=== PATIENT | female | born 1980 | race Caucasian/White ===

== ENCOUNTER → 2017-09-03 17:59 | Outpatient (CLI) | payer BC, SELFPAY ==
[2017-09-03 20:07] LABS: Chlamydia Trachomatis by PCR Negative (Negative); Neisserai gonorrhoeae by PCR Negative (Negative); Probe Check PASS; Sample Adequacy Control PASS; Specimen Processing Control PASS
== END ==
PROVIDERS: Visit Provider Obstetrics & Gynecology
DX: Z11.3 Encounter for screening for infections with a predominantly sexual mode of transmission (principal)
CPT/HCPCS: 87491; 87591

== ENCOUNTER → 2021-09-20 | Outpatient (CLI) | payer BC, SELFPAY ==
[2021-09-26 18:09] LABS: HPV APTIMA, High Risk Negative (Negative)
== END | disposition home or self-care (01) ==
LOC: LABSPEC 16:09
PROVIDERS: Visit Provider Student in an Organized Health Care Education/Training Program
DX: Z12.4 Encounter for screening for malignant neoplasm of cervix (principal)
CPT/HCPCS: 87624; 88175; G0145

== ENCOUNTER → 2022-08-17 | Outpatient (CLI) | payer BC, SELFPAY | END | disposition home or self-care (01) | LOC: LABSPEC 15:32 | PROVIDERS: Visit Provider Physician Assistant | DX: J02.9 Acute pharyngitis, unspecified (principal) | CPT/HCPCS: 87070 ==

== ENCOUNTER 2024-02-29 08:01 | Day surgery (SDC) | payer BC, SELFPAY ==
[2024-02-29] VITALS (8 sets, daily range): BP systolic 147–179; BP diastolic 75–86; PULSE 94–127; RESP 14–20; TEMP 36.4–37.2; O2SAT 94–99; BMI 43.4
--- NOTE | 2024-02-29 08:34 | PCM.PRE.AN2 ---
ASA Classification* ASA Classification ASA Classification: 2 Assessment & Plan Anesthesia* Anesthesia Assessment Anesthesia Assessment: Discussed sedation and/or anesthesia options, risks, benefits, and alternatives with patient/parents/legal guardian/POA. Questions invited. The patient/parents/legal guardian/POA seems to understand and agrees to proceed with anesthesia plan. Reviewed the physical assessment, medical history, allergy history and patient home medications list prior to surgery/procedure/anesthetic and documented any changes. Performed airway and anesthesia risk assessments. Anesthesia Type Anesthesia Type: General Anesthesia Focused Assessment* Airway Assessment Mouth opens: >3 cm Mallampati Score: II Focused Labs Anesthesia Preop lab: CBC WBC 9.1 K/mm3 (4.4-11.0) 07/28/14 05:35 RBC 3.33 M/mm3 (4.2-5.4) L 07/28/14 05:35 Hgb 10.1 g/dl (12.0-15.0) L 07/28/14 05:35 Hct 30.6 % (37-47) L 07/28/14 05:35 Plt Count 233 K/mm3 (150-450) 07/28/14 05:35 CHEMISTRY TSH 0.25 uIU/mL (0.358-3.74) L 12/29/13 10:41 COAG PT 13.6 SECONDS (11.7-14.9) 07/27/14 05:50 Urine Test Pending 02/29/24 08:10 Pre-Assessment Diagnosis/Proposed Procedure Planned Operative Procedure(s): LAP LEFT OVARIAN CYSTECTOMY POSS RIGHT OVARIAN CYSTECTOMY POSS OOPHERECTOMY POSS BILAT SALPINGECTOMY Anesthesia History 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 When Was Last Pacemaker Check QUESTION #4 FULL TEXT: You/Your Family Experience fever (hyperthermia) with Anesthesia Last Oral Intake Last Oral intake: Last Oral Intake NPO since Meds taken in AM with sips of water? Meds patient instructed to take am of surgery PONV PONV - sugarcane research technician: PONV - sugarcane research technician Female Yes 02/27/24 08:32 HX of Motion Sickness Yes 02/27/24 08:32 HX of N/V After Surgery Yes 02/27/24 08:32 Non-Smoker Yes 02/27/24 08:32 Duration of Surgery greater Yes 02/27/24 08:32 than 60 minutes Number of Risk Factors 5 02/27/24 08:32 PONV Score Severe Risk 02/27/24 08:32 Height & Weight Height & Weight: Anesthesia: Height & Weight Height 5 ft 7 in 07/29/21 08:23 Respiratory Assessment Respiratory Assessment - sugarcane research technician: Respiratory Tract Infection Hx - sugarcane research technician Hx Respiratory Tract Infection No 02/27/24 08:32 STOP Sleep Apnea STOP Sleep Apnea - sugarcane research technician: STOP Sleep Apnea - sugarcane research technician Hx Hypertension No 02/27/24 08:32 Hx Sleep Apnea No 02/27/24 08:32 CPAP BIPAP Do you snore loudly (louder Yes 02/27/24 08:32 than talking or can be heard Do you often feel tired/ No 02/27/24 08:32 fatigued/ sleepy during daytime? Has anyone observed you stop No 02/27/24 08:32 breathing during sleep? STOP Results Negative 02/27/24 08:32 QUESTION #5 FULL TEXT : Do you snore loudly (louder than talking or can be heard through closed doors)? Tobacco Use History Tobacco Use History - sugarcane research technician: Tobacco Use History - sugarcane research technician Tobacco Use Smoking Status Never smoker 02/27/24 08:32 Hx Tobacco Use No 02/27/24 08:32 Years Smoking Packs Smoked per Day Smoking Cessation Date was within the last 15 years Hx Smoking Cessation Date Hx Smoking Cessation Counseling Hematologic Medial History Hematologic Hx - sugarcane research technician: Hematologic Medical Hx - rn digestive Hx of Blood Transfusion No 02/27/24 08:32 Hx of Transfusion in last 3 No 02/27/24 08:32 Months Date of Last Transfusion (if within last 3 months) Ever experience any problems No 02/27/24 08:32 with transfusion(s)? Specify any problems Hx of Preganancy in last 3 No 02/27/24 08:32 Months Nurse Filling Out Transfusion DSCHRIBER 02/27/24 08:32 & Questions: Date: 02/27/24 02/27/24 08:32 Time: 08:34 02/27/24 08:32 Patient unable to answer at this time (ie. confused, unrespo /Reproduction History /Reproductive History - sugarcane research technician: /Reproductive Hx- sugarcane research technician Hx Now No 02/27/24 08:32 Gestational Age (in weeks): EDC: Hx Hx Para Hx Section SAB No 02/27/24 08:32 [facility] Medical History Wears glasses History of steroid therapy Migraine headache Back pain Vertigo Gastric reflux Non-smoker History of pain when walking Acute pharyngitis, unspecified Home Medications ?Medication ?Instructions ?Recorded ?Last Taken ?Type cetirizine 10 mg capsule (Zyrtec) 10 mg PO DAILY 07/29/21 Unknown History esomeprazole magnesium 20 mg 20 mg PO DAILY 07/29/21 02/29/24 History capsule,delayed release (Nexium) Allergy/AdvReac Type Severity Reaction Status Date / Time No Known Allergies Allergy Verified 02/27/24 08:31 Family History Father Hypertension Surgical History Hx of microdiscectomy Hx laparoscopic cholecystectomy H/O tubal ligation History of delivery Hx of tonsillectomy Social History Smoking Status: Never smoker Review of Systems (Anesthesia) ROS Narrative System reviewed and no additional complaints, except as documented.
[2024-02-29 08:35] LABS: Internal QC Validated? YES +Cl - CLEAR BKGD; Pregnancy, Urine Negative Negative
[2024-02-29] MEDS: Lactated Ringers 1,000 ML 15 ML IV (09:06)
[2024-02-29 09:13] LABS: Hematocrit 38.2 % (37-47); Hemoglobin 12.9 g/dL (12.0-15.0); Mean Corp Hgb Conc 33.8 g/dL (32-36); Mean Corpuscular Hgb 29.3 pg (27.0-32.0); Mean Corpuscular Volume 86.6 fL (81-99); Mean Platelet Vol. 9.3 fl (6.2-12.0); Platelet Count 385 K/mm3 (150-450); RBC Distribution Width CV 12.9 % (11.6-14.6); RBC Distribution Width SD 40.9 fl (35.1-43.9); Red Blood Count 4.41 M/mm3 (4.2-5.4); White Blood Count 7.8 K/mm3 (4.4-11.0)
--- NOTE | 2024-02-29 09:30 | OV_PTH ---
PATIENT: STACY SILVA LOC: [facility] [place][id number] AGE/SX: 43/F ROOM: RE02/29/[address]: Dr. Eduarda Parra DO : 1980 BED: DIS: 02/29/2024 SPEC #: [id number] RECD: 02/29/24 12:14 STATUS: RAMIRO REAvis #: [id number] SLOANE: 02/29/24 09:[address]: Eduarda Parra DEPT: SURGICAL PATHOLOGY RECD BY: Fatoumata Haddad ENTERED: 02/29/24 13:27 SP TYPE: OVARY OTHR DR: Quynh Cooley, SUPERVISOR HARDBOARD-C Tissues: OVARIAN CYST Procedures: Special Stain Group I Mucicarmine Stain (control) Surgery Specimen Level IV HEADER OPERATION: Laparoscopic left ovarian cystectomy, left oophorectomy PRE-OP DIAGNOSIS: Left ovarian cyst TISSUE SUBMITTED: Right tube, left tube cyst and ovary MICROSCOPIC DIAGNOSIS Right fallopian tube, left fallopian tube, cyst and left ovary, bilateral salpingectomy and left oophorectomy: Right fallopian tube- no pathologic diagnosis. Left fallopian tube- Endometriosis involving serosal surface. Left paratubal cyst. 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 See comment. 03/03/2024 COMMENT Mucin stain with matched control is used in the evaluation of this case. MICROSCOPIC DESCRIPTION Slides are reviewed. GROSS DESCRIPTION Received in fixative is one container labeled with the patient's name and designated Right tube, left tube cyst and ovary. The specimen consists of one fallopian tube identified as right fallopian tube and second fallopian tube and adjacent ovary identified as left tube, cyst and ovary. The right fallopian tube measures 6.0cm in length and 0.5cm in diameter. Fimbrial end is identified. Sections reveal unremarkable cut surfaces. The left fallopian tube measures 4.0cm in length and 0.5cm in diameter. It is similar appearance to right. No tuboovarian adhesions are noted. A paratubal cyst is noted measuring 0.7cm in greatest dimension. Cystic ovary weighs 56.5gm and measures 7.0 x 5.5 x 4.0cm. Outer surface is smooth without any papillation and is inked black. The ovary is replaced by a unilocular cyst occupying the entire ovary. Cyst wall is thin and smooth without any papillations and measures up to 0.1cm in thickness. Gandy Dancer sections are submitted in four cassettes as follows: 1- right fallopian tube, 2- left fallopian tube, 3&4- left ovary. SJBennymr 02/29/2024 TC:1 CPT:21123, [id number]
[2024-02-29] MEDS: Bupivacaine Mpf 0.5% 30 ML VIAL (10:59)
--- NOTE | 2024-02-29 11:14 | PCM.DC ---
Discharge Instructions Diet Discharge Diet: No restrictions Activity Discharge Activity: May Drive (once you are more than 24 hours out from surgery and you feel you can slam on a brake or turn a steering wheel sharply, and once you are not taking pain medication) and May Shower (once you are more than 24 hours out from surgery) May resume sexual activity in: 2 weeks Ice area for (Minutes): 15 Weight Bearing Status: Weight bearing as tolerated Lifting Restrictions: nothing heavier than 10-15 pounds for 2 weeks Dressing / Incision Call your doctor if your incision/area has: Continuous Slow Oozing, Sudden Increased Bleeding, Increased Pain/ Swelling, Increased Redness, Foul Smelling Discharge and Swelling at the incision site Call your doctor if you observe: Fever of 101 or Higher, Inability to urinate, Inability to have a bowel movement, Using more than 1 pad per hour, Shortness of breath, Dizziness, Swelling in the ankles, Chest pain, Increased palpitations (irregular heartbeat), Calf discomfort and Uncontrolled pain Suture Line Care: Avoid Pulling/Pushing and Avoid Pinching/Bending Remove Dressing in: leave until fall off Cleanse incision/area with: Soap & Water Follow Up Care Please Follow Up With: Eduarda Parra DO When: 1-2 weeks post op Test Results: Test results from this visit will be discussed in further detail at your follow-up appointment, if applicable. Discharge Plan Admission Primary Reason for Your Visit: surgery Attending Provider: Eduarda Parra Primary Care Provider: Quynh Cooley NP Instructions Patient Instructions: Lap Fallopian Tube Ligation Dc Print Language: Armenian Discharge Orders/Prescriptions Prescriptions: New oxycodone 5 mg tablet 5 mg PO Q6H PRN (Reason: pain) 7 Days Qty: 10 0RF Continued Zyrtec 10 mg capsule 10 mg PO DAILY esomeprazole magnesium [Nexium] 20 mg capsule,delayed release(DR/EC) 20 mg PO DAILY Disposition Disposition (needs filled in before D/C Order can be placed): Home, Self Care
--- NOTE | 2024-02-29 11:16 | OP.PCM_ITS ---
Problems Associated Problem List Diagnoses (1) Ovarian cyst: (2) Pelvic pain: Operative Report (Standard) Operative Information Surgery/Procedure Performed: Laparoscopic left oophorectomy, bilateral salpingectomy, removal of ovarian cyst Surgeon: Eduarda Parra Date of Procedure: 02/29/24 Procedure Start Time: 09:59 Procedure Stop Time: 11:16 Pre-Operative Diagnosis: Ovarian cyst, pelvic pain Post-Operative Diagnosis: As above, endometriosis Select all DRAINS/GRAFTS/IMPLANTS that apply: None Type of Anesthesia: General Special Medications: None Estimated Blood Loss: < 20 mL Fluids Replaced: 1000 mL Specimen collected: Yes Description of specimen(s) removed: Left ovary with cyst, bilateral fallopian tubes Description of surgery: The patient was taken to the OR where general anesthesia was induced and found to be adequate. She was then prepped and draped in the dorsal lithotomy position using yellowfin stirrups. From below a weighted speculum was placed in the vagina to expose the cervix. The anterior lip of the cervix was grasped with a single-tooth tenaculum. A Keyonna uterine manipulator was inserted in usual fashion. The single-tooth tenaculum was removed, and the weighted speculum was removed once the uterine manipulator was in position. Gloves were changed and attention was turned to the abdominal portion of the procedure. Local was infiltrated at all port sites. An infraumbilical incision was made to accommodate a 5 mm port. The 5 mm port was placed under direct visualization using the laparoscope. Once confirmed intraperitoneal, CO2 insufflation was initiated. No injury was noted upon entry. The patient was placed in steep Trendelenburg position. A left lateral 5 mm port was placed. A right lateral 5 mm port was placed. Both lateral ports were placed under direct visualization with no injury noted upon entry. The uterus was upheld from below, but was very retroflexed making uterine manipulation difficult. A 6 to 7 cm left ovarian cyst was noted, and was benign appearing. The right ovary was normal-appearing. Filshie clips were noted on bilateral fallopian tubes. Several endometriosis lesions were noted in the pelvic cul-de-sac, along the pelvic sidewalls, and over the surface of the uterus. The right fallopian tube was followed out to the fimbriated end. The LigaSure device was used to serially clamp, cauterize, and transect along the mesosalpinx hugging adjacent to the fallopian tube until reaching level of the cornua. Once at the level of the cornua the fallopian tube was transected and removed with the Filshie clip and sent to pathology for review. Upon inspection of the left adnexa, no normal ovarian tissue was noted. The ovary contained a large simple appearing cyst. The left ureter was identified. The ovarian mass was then tented up and the LigaSure device was used to cauterize and transect along the IP ligament. Next the utero-ovarian ligament was clamped, cauterized, and transected to free the left ovary withe the cyst, and left fallopian tube. The Filshie clip that was on the left fallopian tube fell off and was removed from the abdomen. The left ovary and left fallopian tube were placed in the Endo Catch bag and removed through the infraumbilical incision, after draining the cyst of a clear mucinous fluid. The skin was extended around this incision the fascia was extended using Phelps scissors as well. The specimen was removed in the Endo Catch bag through the site. The fascia of the infra umbilical incision was then closed using 0 Vicryl on a UR 6 needle in a running fashion, and an additional figure of eight. The subcutaneous space was then reapproximated using 3-0 Vicryl. The skin of all port sites were then closed with 4-0 Vicryl in a subcuticular fashion, with Dermabond glue over top. The uterine manipulator was removed from below. Sponge, instrument, and needle counts were correct x 2. The patient was taken to the recovery room in stable condition. Surgical Findings: Enlarged fibroid uterus. There was a 2-3 cm subserosal fibroid noted on the left fundus. The uterus was very retroflexed limiting mobility of the uterus. Endometriosis lesions noted over the serosal surface of uterus, along pelvic side wall, and in pelvic cul de sac. Normal appearing right ovary. Left ovarian cyst noted to be about 6-7 cm in size with no obvious normal ovarian tissue identified. Bilateral fallopian tubes with Filshie clips in place Appliance Fixer geometrician: Yes Care Attendant: Lona Mckeon Tasks completed by laboratory chemical assistant: Opening & closing, Removing tissue, Trocar and Retracting Additional promotions assistant sales marketing?: Yes Additional Air Traffic Controller #2: Sherita Espinoza Tasks completed by promotions assistant sales marketing #2: Closing (assisted with closing fascia of umbilical incision and skin incisions) Complications Complications: No Admit VTE Documentation VTE Present on Admission: No VTE Mechan Device Prophylaxis: SCD's
--- NOTE | 2024-02-29 11:31 | PCM.POST.ANE ---
Anesthesia: Postop Eval I Current Vital Signs Temperature: 97.5 F Pulse Rate: 127 Blood Pressure: 160/84 Respiratory Rate: 20 Pulse Ox: 94 Assessment Airway patent: Yes Spontaneous unlabored respirations: Yes nausea: No Vomiting: No Anesthesia Complication: No Fluid Hydration Crystalloid volume administer (ml): 1,000 Total IV fluid infused: 1,000 Progress Note Anesthesia document: Postop Eval 1 completed: Yes
--- NOTE | 2024-02-29 16:28 | POSTOPAN2_ITS ---
Anesthesia Postop Eval I Sum Postop Eval Completion status Anesthesia document: Postop Eval 1 completed: Yes Anesthesia Postop Eval I Summary Anesthesia Postop Eval I Summary: Anesthesia Postop Eval I: Assessment Summary Airway patent Yes 02/29/24 11:31 PLANT [email or web address] Spontaneous unlabored Yes 02/29/24 11:31 PLANT [email or web address] respirations Mental status nausea No 02/29/24 11:31 PLANT [email or web address] Vomiting No 02/29/24 11:31 PLANT [email or web address] Anesthesia Postop Eval I: Fluid Summary Crystalloid volume administer 1,000 02/29/24 11:31 PLANT [email or web address] (ml) Colloids volume administered ( ml) Blood Product volume administered (ml) Total IV fluid infused 1,000 02/29/24 11:31 PLANT [email or web address] Anesthesia Postop Eval I: Summary Notes Anesthesia Complication No 02/29/24 11:31 PLANT [email or web address] Anesthesia Complication Comment: Post-operative progress note Anesthesia: Postop Eval II Evaluation Mental status: Awake and Calm Pain Level: 1 nausea: No Vomiting: No Complications Anesthesia Complication: No
--- NOTE | 2024-02-29 16:28 | PCM.POSTANE2 ---
Anesthesia Postop Eval I Sum Postop Eval Completion status Anesthesia document: Postop Eval 1 completed: Yes Anesthesia Postop Eval I Summary Anesthesia Postop Eval I Summary: Anesthesia Postop Eval I: Assessment Summary Airway patent Yes 02/29/24 11:31 PIPE COVERING [email or web address] Spontaneous unlabored Yes 02/29/24 11:31 PIPE COVERING [email or web address].CSIR respirations Mental status nausea No 02/29/24 11:31 PIPE COVERING [email or web address].CSIR Vomiting No 02/29/24 11:31 PIPE COVERING [email or web address] Anesthesia Postop Eval I: Fluid Summary Crystalloid volume administer 1,000 02/29/24 11:31 PIPE COVERING [email or web address].CSIR (ml) Colloids volume administered ( ml) Blood Product volume administered (ml) Total IV fluid infused 1,000 02/29/24 11:31 PIPE COVERING [email or web address].CSIR Anesthesia Postop Eval I: Summary Notes Anesthesia Complication No 02/29/24 11:31 PIPE COVERING [email or web address] Anesthesia Complication Comment: Post-operative progress note Anesthesia: Postop Eval II Evaluation Mental status: Awake and Calm Pain Level: 1 nausea: No Vomiting: No Complications Anesthesia Complication: No
== END 2024-02-29 12:39 | disposition home or self-care (01) ==
LOC: SDC 08:02 → AC 08:04
PROVIDERS: PCP Nurse Practitioner Family; Referring Provider Obstetrics & Gynecology; Visit Provider Obstetrics & Gynecology
PROC: (CPT 58661; principal; 2024-02-29 09:15)
DX: N83.8 Other noninflammatory disorders of ovary, fallopian tube and broad ligament (principal); D25.9 Leiomyoma of uterus, unspecified; D27.1 Benign neoplasm of left ovary; N80.202 Endometriosis of left fallopian tube, unspecified depth; K21.9 Gastro-esophageal reflux disease without esophagitis; Z79.899 Other long term (current) drug therapy
CPT/HCPCS: 58661; 00840; 81025; 85027; 86850; 86900; 86901; 88305; 88312; J7120; J2405

== ENCOUNTER 2024-03-10 14:58 | Observation (INO) | payer BC, SELFPAY ==
[2024-03-10 12:26] VITALS: BMI 42.9
[2024-03-10 12:29] VITALS: BP 145/85; PULSE 82; RESP 16; TEMP 37; O2SAT 96
--- NOTE | 2024-03-10 12:54 | HP.PCM_ITS ---
History and Physical Date of Admission: 03/10/24 ASSESSMENT & PLAN: 43 year old s/p laparoscopic left oophorectomy with bilateral salpingectomy on 02/29/24. Endometriosis and uterine fibroids present at time of surgery. Pathology benign - 7 cm mucinous cystadenoma. SUBJECTIVE: CHIEF COMPLAINT: cellulitis HISTORY OF THE PRESENT ILLNESS: The patient is a 43 year old female who presents for follow up of cellulitis. Has been on Bactrim for wound cellulitis for 5 days. Was feeling better this weekend and then today started to feel worse again. Had a fever of 101.8 this morning, chills, malaise, and nausea. Erythema of cellulitis improving, but pain worsening. ANESTHESIA COMPLICATIONS: None HISTORY REVIEW PAST MEDICAL HISTORY No past medical history on file. PAST SURGICAL HISTORY PAST SURGICAL HISTORY Procedure Laterality Date ? BACK SURGERY HX 01/25/2024 ? DELIVERY ONLY x2 ? LIGATE FALLOPIAN TUBE ? REMOVAL GALLBLADDER ? REMOVAL OF OVARY(S) Left 02/29/2024 Laparoscopic left oophorectomy ? SALPINGECTOMY Bilateral 02/29/2024 ? TONSILLECTOMY & ADENOIDECTOMY <AGE 14 FAMILY HISTORY FAMILY HISTORY Problem Relation Age of Onset ? Cancer Maternal Grandmother lymphoma? ? Cancer Maternal Grandfather stomach? SOCIAL HISTORY Social History Tobacco Use ? Smoking status: Never ? Smokeless tobacco: Never Vaping Use ? Vaping status: Never Used Substance Use Topics ? Alcohol use: Yes Comment: rare ? Drug use: Never Obstetric History T0 L2 SAB0 IAB0 Ectopic0 Multiple0 Live Births0 Name of Baby 1: Not recorded Date: Not recorded GA: Not recorded Type: Not recorded Apgar1: Not recorded Apgar5: Not recorded Living: Not recorded Name of Baby 2: Not recorded Date: Not recorded GA: Not recorded Type: Not recorded Apgar1: Not recorded Apgar5: Not recorded Living: Not recorded ALLERGIES: ALLERGIES ALLERGIES No Known Allergies PRIOR TO ADMISSION MEDICATIONS: Prior to Admission medications as of 03/10/24 1053 Medication Sig Last Dose Taking oxyCODONE IR (ROXICODONE) 5 mg immediate release tablet Take 1 tablet by mouth every 8 hours as needed for pain for up to 5 days. Taking Yes sulfamethoxazole-trimethoprim (BACTRIM DS) 800-160 mg per tablet Take 1 tablet by mouth two times a day for 7 days. Taking Yes Cetirizine (ZYRTEC) 10 mg cap Take by mouth. Taking Yes esomeprazole (NEXIUM) 20 mg capsule Take 20 mg by mouth daily at 6 am. Taking Yes No medication comments found. REVIEW OF SYSTEMS: The remainder of the review of systems is negative. OBJECTIVE: SENSITIVE EXAM: Sensitive exam not performed. PHYSICAL EXAM: General: WD, WN HEENT: Not examined Lungs: normal respiratory effort Heart: Not examined Abdomen: soft, no masses, erythema significantly improved but skin warm to touch, umbilical incision draining foul smelling domínguez colored drainage, fascia intact upon probing incision, area re packed Extremities: no edema LAST VITALS: BP 140/90 Wt 124.9 kg (275 lb 6.4 oz) BMI 43.13 kg/m? LABS Hemoglobin (g/dL) Date/Time Value 03/05/2024 1054 12.7 Hematocrit (%) Date/Time Value 03/05/2024 1054 37.3 Platelet Count (k/uL) Date/Time Value 03/05/2024 1054 417 (H) Assessment and Plan: Patient being seen for follow up of wound cellulitis post op. She has been on Bactrim for 5 days but continues to have fevers. Recommend admission for IV antibiotics, labs, and CTAP. Patient agreeable. Discussed plan of care with provider animal control licensing worker today. Assessment & Plan Assessment/Plan (1) Postoperative wound abscess:
--- NOTE | 2024-03-10 13:23 | CT_ITS ---
STUDY: CT ABDOMEN AND PELVIS WITH CONTRAST REASON FOR EXAM: Female, 43 years old. cellulitis -- ct of abdomen and pelvis with iv contrast RADIATION DOSAGE (If Supplied By Facility): CTDIvol = ( 23.96 ) mGy, DLP = ( 1860.13 ) mGycm TECHNIQUE: Transaxial images were obtained from the dome of the diaphragm to the symphysis pubis without oral contrast. IV 100mL Isovue-370 was administered. Sagittal and coronal images were reconstructed. Individualized dose optimization techniques were used for this CT. COMPARISON: None. FINDINGS: The visualized lung bases are unremarkable. The visualized portions of the heart are within normal limits. Normal liver. There are surgical clips in the gallbladder fossa consistent with a prior cholecystectomy. Normal spleen. Normal pancreas. Normal bilateral adrenal glands. Normal right kidney. Normal left kidney. Normal visualized stomach. Normal small intestine. Normal colon. The appendix is visualized and appears normal. Normal abdominal aorta. Normal inferior vena cava. Normal retroperitoneum. Normal urinary bladder. Intrauterine device within the uterus. Fluid and stranding of the fat of the umbilicus consistent with postsurgical changes. No well-defined fluid collection to suggest abscess. Normal osseous structures. CT/Abdomen/Pelvis W IV Cont ONLY IMPRESSION: Postsurgical changes of the umbilicus likely from recent laparoscopic surgery but no hematoma or abscess. Electronically Signed: Norman Allen MD at 14:39 EST ,
[2024-03-10 13:24] LABS: Absolute Lymphocyte Count 2.49 X10^3/uL (0.83-4.51); Absolute Neutrophil Count 5.4 X10^3/uL (2.0-7.7); Basophil# 0.13 X10^3/uL; Basophil% 1.4 % (0-1); Eosinophil# 0.29 X10^3/uL; Eosinophils% 3.2 % (0-5); Hematocrit 37.6 % (37-47); Hemoglobin 12.5 g/dL (12.0-15.0); Lymphocyte # 2.49 X10^3/ul (0.83-4.51); Lymphocyte % 27.2 % (19-41); Mean Corp Hgb Conc 33.2 g/dL (32-36); Mean Corpuscular Hgb 29.3 pg (27.0-32.0); Mean Corpuscular Volume 88.1 fL (81-99); Mean Platelet Vol. 9.2 fl (6.2-12.0); Monocyte# 0.75 X10^3/uL; Monocyte% 8.2 % (0-10); NRBC Flagged by Analyzer 0 % (0-5); Neutrophil # 5.41 X10^3/uL (2.7-7.7); Neutrophil % 58.9 % (47-70); Platelet Count 435 K/mm3 (150-450); RBC Distribution Width CV 12.8 % (11.6-14.6); RBC Distribution Width SD 41.3 fl (35.1-43.9); Red Blood Count 4.27 M/mm3 (4.2-5.4); White Blood Count 9.2 K/mm3 (4.4-11.0)
[2024-03-10 13:39] LABS: ALB/GLOB Ratio 0.9 RATIO (0.9-2.4); AST(SGOT) 11 U/L (15-37); Alanine Aminotransfer ALT/SGPT 20 U/L (13-56); Albumin, Serum 3.8 g/dL (3.2-5.0); Alkaline Phosphatase 84 U/L (45-117); Anion Gap 9 (5-15); BUN 12 mg/dL (7-18); BUN/Creat Ratio 18.2 RATIO (10-20); Calcium,Total 9.9 mg/dL (8.5-10.1); Chloride 107 mmol/L (98-107); Creatinine, Serum 0.66 mg/dL (0.55-1.02); EST Glomerular Filtration Rate 104 mL/min (>60); Est Glom Filt Rate - Afr Amer 126 mL/min (>60); Globulin 4.1 g/dL (2.2-4.2); Glucose 94 mg/dL (74-106); Potassium 3.9 mmol/L (3.5-5.1); Protein, Total 7.9 g/dL (6.4-8.2); Sodium Level 137 mmol/L (136-145)
[2024-03-10] MEDS: Vancomycin HCl 1,750 MG in 0.9% Normal Saline (500mL Bag) 500 ML 250 MG IV (14:11)
[2024-03-10] MEDS: 0.9% Saline Lock 10 ML Syringe IV ×2 (14:11→21:26)
[2024-03-10] MEDS: Ensure Plus High Protein 120 ML LIQUID PO (14:47)
--- NOTE | 2024-03-10 15:09 | PCM.RX.CS ---
Consult Antibiotic Management Pharmacy has been consulted to manage selected antibiotic: Vancomycin Type of Intervention Type of Consult: New start Suspected Infection Suspected Infection: Skin/Soft tissue Prior Doses of Antibiotics Prior Doses of Antibiotics Received/Current Regimen: Vancomycin 1750 mg IV x 1 given 03/10/24 @ 1411 Labs Labs: Sodium 137 mmol/L (136-145) 03/10/24 13:16 Potassium 3.9 mmol/L (3.5-5.1) 03/10/24 13:16 Chloride 107 mmol/L (98-107) 03/10/24 13:16 Carbon Dioxide 22.0 mmol/L (21.0-32.0) 03/10/24 13:16 Anion Gap 9 (5-15) 03/10/24 13:16 BUN 12 mg/dL (7-18) 03/10/24 13:16 Creatinine 0.66 mg/dL (0.55-1.02) 03/10/24 13:16 Est GFR (MDRD) Af Amer 126 mL/min (>60) 03/10/24 13:16 Est GFR (MDRD) Non-Af 104 mL/min (>60) 03/10/24 13:16 BUN/Creatinine Ratio 18.2 RATIO (10-20) 03/10/24 13:16 Glucose 94 mg/dL (74-106) 03/10/24 13:16 Dosing Weight Weight used for dosin kg Estimated Creatinine Clearance Estimated Creatinine Clearance: ~ 153 Goal Trough Goal Trough: 10-15 mcg/mL Pharmacy Plan for Drug Dosing Pharmacy Plan for Drug Dosing: Vancomycin 1750 mg IV x 1 then 1750 mg Q12H Pharmacy Service will continue to monitor and adjust dosing as required. Follow-Up Labs Follow-Up Labs: Trough: Vancomycin Date/Time Labs Ordered Labs to be done on [date and time ordered]: 03/12/24 @ 0135
[2024-03-10 18:44] VITALS: BP 136/73; PULSE 88; RESP 14; TEMP 36.6; O2SAT 95
[2024-03-10] MEDS: Ibuprofen 600 MG Tablet PO (18:49)
[2024-03-10 21:19] VITALS: BP 137/84; PULSE 82; RESP 16; TEMP 36.6; O2SAT 99
[2024-03-10] MEDS: Ondansetron 4 MG/2 ML Vial IV (21:26)
[2024-03-11] MEDS: Vancomycin HCl 1,750 MG in 0.9% Normal Saline (500mL Bag) 500 ML 250 MG IV (01:42)
[2024-03-11 03:15] VITALS: BP 120/72; PULSE 79; RESP 14; TEMP 36.5; O2SAT 99
[2024-03-11] MEDS: Ibuprofen 600 MG Tablet PO (03:53)
[2024-03-11 06:38] LABS: Anion Gap 5 (5-15); BUN 9 mg/dL (7-18); BUN/Creat Ratio 13.2 RATIO (10-20); Calcium,Total 9.3 mg/dL (8.5-10.1); Chloride 105 mmol/L (98-107); Creatinine, Serum 0.68 mg/dL (0.55-1.02); EST Glomerular Filtration Rate 101 mL/min (>60); Est Glom Filt Rate - Afr Amer 122 mL/min (>60); Estimated Creatinine Clearance 148.98 ml/min; Glucose 115 mg/dL (74-106); Sodium Level 136 mmol/L (136-145)
[2024-03-11 06:40] LABS: Absolute Lymphocyte Count 1.39 X10^3/uL (0.83-4.51); Absolute Neutrophil Count 3.9 X10^3/uL (2.0-7.7); Basophil# 0.05 X10^3/uL; Basophil% 0.8 % (0-1); Eosinophil# 0.38 X10^3/uL; Hematocrit 36.4 % (37-47); Hemoglobin 11.9 g/dL (12.0-15.0); Lymphocyte # 1.39 X10^3/ul (0.83-4.51); Mean Corp Hgb Conc 32.7 g/dL (32-36); Mean Corpuscular Hgb 29.2 pg (27.0-32.0); Mean Corpuscular Volume 89.2 fL (81-99); Mean Platelet Vol. 8.9 fl (6.2-12.0); Monocyte# 0.55 X10^3/uL; Monocyte% 8.7 % (0-10); NRBC Flagged by Analyzer 0 % (0-5); Neutrophil # 3.89 X10^3/uL (2.7-7.7); Neutrophil % 61.6 % (47-70); Platelet Count 374 K/mm3 (150-450); RBC Distribution Width CV 12.9 % (11.6-14.6); Red Blood Count 4.08 M/mm3 (4.2-5.4); White Blood Count 6.3 K/mm3 (4.4-11.0)
[2024-03-11 08:10] VITALS: BP 136/97; PULSE 80; RESP 18; TEMP 36.8; O2SAT 96
--- NOTE | 2024-03-11 09:19 | PN_ITS ---
Subjective Subjective Patient denies complaints at this time. She states that redness is better. Objective Data Objective Data Vital Signs: Vital Signs Temp Pulse Resp BP Pulse Ox O2 Del Method 98.3 F 80 18 136/97 H 96 Room Air 03/11/24 08:10 03/11/24 08:10 03/11/24 08:10 03/11/24 08:10 03/11/24 08:10 03/11/24 08:11 Oxygen Delivery Method Room Air Weight: 274 lb 0.553 oz Body Mass Index (BMI) 42.9 Intake & Output: Intake and Output for Last 24 Hours 03/09/24 03/10/24 03/11/24 23:59 23:59 23:59 Intake Total 1055 / 1705 1335 / 1335 Balance 1055 / 1705 1335 / 1335 Lab / Micro Data 03/11/24 05:30 03/11/24 05:30 Labs: Laboratory Results - last 24 hr 03/10/24 13:16: WBC 9.2, RBC 4.27, Hgb 12.5, Hct 37.6, MCV 88.1, MCH 29.3, MCHC 33.2, RDW Std Deviation 41.3, RDW Coeff of Abbey 12.8, Plt Count 435, MPV 9.2, I mmature Gran % (Auto) 1.100 H, Neut % (Auto) 58.9, Lymph % (Auto) 27.2, [place]oddard % (Auto) 8.2, Eos % (Auto) 3.2, Baso % (Auto) 1.4 H, Absolute Neuts (auto) 5.4, Absolute Lymphs (auto) 2.49, Nucleated RBC % 0, Sodium 137, Potassium 3.9, Chloride 107, Carbon Dioxide 22.0, Anion Gap 9, BUN 12, Creatinine 0.66, Estim Creat Clear Calc 153.50, Est GFR (MDRD) Af Amer 126, Est GFR (MDRD) Non-Af 104, BUN/Creatinine Ratio 18.2, Glucose 94, Calcium 9.9, Total Bilirubin 0.20, AST 11 L, ALT 20, Alkaline Phosphatase 84, Total Protein 7.9, Albumin 3.8, Globulin 4.1, Albumin/Globulin Ratio 0.9 03/11/24 05:30: WBC 6.3, RBC 4.08 L, Hgb 11.9 L, Hct 36.4 L, MCV 89.2, MCH 29.2, MCHC 32.7, RDW Std Deviation 42.0, RDW Coeff of Abbey 12.9, Plt Count 374, MPV 8.9, Immature Gran % (Auto) 0.900, Neut % (Auto) 61.6, Lymph % (Auto) 22.0, [place] % (Auto) 8.7, Eos % (Auto) 6.0 H, Baso % (Auto) 0.8, Absolute Neuts (auto) 3.9, Absolute Lymphs (auto) 1.39, Nucleated RBC % 0, Sodium 136, Potassium 4.0, Chloride 105, Carbon Dioxide 25.0, Anion Gap 5, BUN 9, Creatinine 0.68, Estim Creat Clear Calc 148.98, Est GFR (MDRD) Af Amer 122, Est GFR (MDRD) Non-Af 101, BUN/Creatinine Ratio 13.2, Glucose 115 H, Calcium 9.3 Radiography Diagnostic Testing: Radiology Impression Abdomen/Pelvis CT 03/10/24 13:23 IMPRESSION: Postsurgical changes of the umbilicus likely from recent laparoscopic surgery but no hematoma or abscess. Electronically Signed: Norman Allen MD at 14:39 EST , Physical Exam Const alert, oriented x3 and no apparent distress GI soft to palpation, non-tender and non-distended GI Narrative: packing removed, serous drainage noted from umbilical incision Assessment & Plan Assessment/Plan (1) Wound infection: PLAN: CT is negative and patient is AF. Patient has a superficial wound infection. Plan to continue wound packing & oral antibiotics at home.
--- NOTE | 2024-03-11 09:22 | PCM.DC ---
Discharge Instructions Diet Discharge Diet: No restrictions DC O2, CPAP, BIPAP needs Additional Home O2 Discharge instructions: No Dressing / Incision Discharge Activity: No Restrictions and May Shower May resume sexual activity in: No Restrictions Weight Bearing Status: Weight bearing as tolerated Dressing / Incision Call your doctor if your incision/area has: Increased Pain/ Swelling and Increased Redness Call your doctor if you observe: Fever of 101 or Higher, Fainting spells, Chest pain, Increased palpitations (irregular heartbeat) and Uncontrolled pain Suture Line Care: Avoid Pulling/Pushing Change Dressing in: 1 day (continue daily wound packing as directed) Cleanse incision/area with: Soap & Water Follow Up Care Please Follow Up With: Eduarda Parra DO When: 1 week or as needed Test Results: Test results from this visit will be discussed in further detail at your follow-up appointment, if applicable. Discharge Plan Admission Admit Date/Time: 03/10/24 13:22 Attending Provider: Eduarda Parra Primary Care Provider: Quynh Cooley NP Discharge Orders/Prescriptions Prescriptions: No Action Zyrtec 10 mg capsule 10 mg PO DAILY esomeprazole magnesium [Nexium] 20 mg capsule,delayed release(DR/EC) 20 mg PO DAILY oxycodone 5 mg tablet 5 mg PO Q6H PRN (Reason: pain) 7 Days Qty: 10 0RF sulfamethoxazole-trimethoprim 800-160 mg tablet 1 tab PO BID Referrals / Follow Up: Quynh Cooley NP, [facility] [Primary Care Provider] - Disposition Disposition (needs filled in before D/C Order can be placed): Home, Self Care
--- NOTE | 2024-03-11 10:09 | CASEMGMT ---
Patient has order for discharge. RN CM in room to discuss needs at discharge. Patient denies needs or help at discharge. Patient had no further questions or concerns.
[2024-03-11] MEDS: Smz/Tmp Ds Tablet 1 TABLET PO (10:54)
[2024-03-11] MEDS: Loratadine 10 MG Tablet PO (10:54)
[2024-03-11] MEDS: Pantoprazole Sodium 20 MG Tablet PO (10:54)
[2024-03-11 12:12] VITALS: BP 143/87; PULSE 88; RESP 18; TEMP 36.3; O2SAT 98
== END 2024-03-11 09:24 | disposition home or self-care (01) ==
PROVIDERS: Admitting Provider Obstetrics & Gynecology; PCP Nurse Practitioner Family; Visit Provider Obstetrics & Gynecology
DX: T81.49XA Infection following a procedure, other surgical site, initial encounter (principal); E66.01 Morbid (severe) obesity due to excess calories; Z68.41 Body mass index [BMI] 40.0-44.9, adult; Y83.6 Removal of other organ (partial) (total) as the cause of abnormal reaction of the patient, or of later complication, without mention of misadventure at the time of the procedure
CPT/HCPCS: 36415; 74177; 80048; 80053; 85025; 96365; 96366; 96375; 97802; 99221; J7040; Q9967; A4216; G0378; G0379; J2405